=== PATIENT | female | born 1995 | race Caucasian/White ===

== ENCOUNTER → 2020-01-15 | Outpatient (CLI) | payer OTHER ==
[2020-01-16 02:06] LABS: AFPT MARKER 4.5 ng/mL (0.0-8.3); CA 125 28.8 U/mL (0.0-38.1)
[2020-01-17 07:07] LABS: CEA 1.5 ng/mL (0.0-4.7)
== END ==
LOC: LAB 14:30
PROVIDERS: ATTEND Obstetrics & Gynecology
DX: R19.00 Intra-abdominal and pelvic swelling, mass and lump, unspecified site (principal)
CPT/HCPCS: 36415; 82105; 82378; 83615; 86304

== ENCOUNTER → 2020-08-06 | Outpatient (CLI) | payer OTHER ==
--- NOTE | 2020-08-06 16:37 | RAD ---
Examination: NECK SOFT TISSUE History: Reason: LT NECK LUMP / Spl. Instructions: / History: Comparison/Correlation: None Findings: Ultrasound examination of the left side of the neck was performed. There is a hypoechoic mass measuring 2.9 cm x 1.6 cm x 0.8 cm. It is well-circumscribed. It is anterior to the left common carotid artery and internal jugular vein. Central echogenicity which may represent a hilum as would be expected of a lymph node is present. No flow within it. Impression: Well-circumscribed lesion probably representing a lymph node is present at the site of the reported palpable abnormality. No suspicious features. Consider interval follow-up to assess stability or resolution. Electronically signed by: Nish Ayala MD (08/06/2020 4:35 PM) [facility]
== END ==
LOC: US 11:29
PROVIDERS: ATTEND Family Medicine
DX: R22.1 Localized swelling, mass and lump, neck (principal)
CPT/HCPCS: 76536

== ENCOUNTER → 2020-10-14 | Outpatient (CLI) | payer OTHER | LOC: LAB 12:15 | PROVIDERS: ATTEND Obstetrics & Gynecology | DX: N92.6 Irregular menstruation, unspecified (principal) | CPT/HCPCS: 36415; 84144 ==

== ENCOUNTER → 2020-11-12 | Outpatient (CLI) | payer OTHER | LOC: LAB 14:24 | PROVIDERS: ATTEND Obstetrics & Gynecology | DX: N92.6 Irregular menstruation, unspecified (principal) | CPT/HCPCS: 36415; 84144 ==